=== PATIENT | male | born 1985 | race Caucasian/White ===

== ENCOUNTER 2023-10-16 20:39 | Emergency (ER) | payer OTHER, SELFPAY ==
[2023-10-16 21:58] LABS: Absolute Lymphocytes (CBC) 2.5 K/uL (0.7-4.9); Lymphocytes % 24.6 % (15.3-44.8); MCV 87.7 fL (80-100); MPV 7.2 fL (7.6-11.3); Platelets 353 thou/uL (152-406); RBC Red Blood Cell Count 4.22 M/uL (4.33-5.43)
[2023-10-16 22:05] LABS: Potassium 3.5 mEq/L (3.5-5.1); Troponin High Sensitivity 4.3 pg/mL (<58.9)
--- NOTE | 2023-10-16 22:28 | RAD REPORT ---
EXAM DESCRIPTION: RAD - Chest Single View - 10/16/2023 10:21 pm CLINICAL HISTORY: PALPITATIONS Chest pain. COMPARISON: <Comparisons> FINDINGS: Portable technique limits examination quality. The lungs are grossly clear. The heart is normal in size. No displaced fractures. IMPRESSION: No acute intrathoracic process suspected.
--- NOTE | 2023-10-16 22:44 | ER ---
Nurse's Notes [facility] Name: Todd Cast Age: 38 yrs Sex: Male : 1985 Arrival Date: 10/16/2023 Time: 20:39 Bed 17 Private MD: Diagnosis: Palpitations Presentation: 10/16 20:58 Chief complaint: Patient states: Palpitations onset last Wednesday. Pt denies any nausea, cm10 chest pain and shortness of breath. Coronavirus screen: Vaccine status: Patient reports receiving the 2nd dose of the covid vaccine. Client indicates they have traveled out of the [place] in the last 14 days. Ebola Screen: Patient denies travel to an Ebola-affected area in the 21 days before illness onset. No symptoms or risks identified at this time. Initial Sepsis Screen: Does the patient meet any 2 criteria? No. Patient's initial sepsis screen is negative. Does the patient have a suspected source of infection? No. Patient's initial sepsis screen is negative. Risk Assessment: Do you want to hurt yourself or someone else? Patient reports no desire to harm self or others. Onset of symptoms was October 16, 2023. 20:58 Method Of Arrival: Ambulatory cm10 20:58 Acuity: LORENA 3 cm10 Historical: - Allergies: 21:00 No Known Allergies; cm10 - PMHx: 21:00 GERD; hiatal hernia; cm10 - Immunization history:: Adult Immunizations unknown. - Social history:: Smoking status: Patient denies any tobacco usage or history of. Screenin:29 [facility] ED Fall Risk Assessment (Adult) History of falling in the last 3 months, nw1 including since admission No falls in past 3 months (0 pts) Confusion or Disorientation No (0 pts) Intoxicated or Sedated No (0 pts) Impaired Gait No (0 pts) Mobility Assist Device Used No (0 pt) Altered Elimination No (0 pt) Score/Fall Risk Level 0 - 2 = Low Risk Oriented to surroundings, Maintained a safe environment, Educated pt \T\ family on fall prevention, incl call for assistance when getting out of bed, Assessed \T\ reinforced patient's understanding of fall precautions, Provided non-skid footwear, Hourly rounding (assess needs \T\ fall precautionary measures) done. Abuse screen: Denies threats or abuse. Denies injuries from another. Nutritional screening: No deficits noted. Tuberculosis screening: No symptoms or risk factors identified. Assessment: 22:29 Reassessment: INTRODUCTIONS MADE. PT NOTED IN BED WITH S.O. VSS AT THIS TIME. PT STATES nw1 DECREASE IN HEART PALPITATIONS. PT STATES HE HAS BEEN HAVING PALPITATIONS SINCE WEDNESDAY WHEN COMING BACK FROM [place]. CALL LIGHT AT BEDSIDE. WILL CONTINUE TO MONITOR. General: Appears in no apparent distress. comfortable, Behavior is calm, cooperative, appropriate for age. Pain: DENIES Pain began DENIES. Neuro: Level of Consciousness is awake, alert, obeys commands, Oriented to person, place, time, situation, Appropriate for age. Cardiovascular: Reports palpitations, since 10/08/23. Heart tones present Capillary refill < 3 seconds Pulses are all present. Rhythm is regular. Respiratory: No deficits noted. Airway is patent Trachea midline Respiratory effort is even, unlabored, Respiratory pattern is regular, symmetrical. GI: No deficits noted. No signs and/or symptoms were reported involving the gastrointestinal system. Abdomen is flat, Bowel sounds present X 4 quads. Abd is soft and non tender. Derm: No signs and/or symptoms reported regarding the dermatologic system. Skin is intact, is healthy with good turgor, Skin is dry. Musculoskeletal: No deficits noted. No signs and/or symptoms reported regarding the musculoskeletal system. Vital Signs: 20:58 BP 146 / 102; Pulse 74; Resp 18; Temp 97.7; Pulse Ox 100% ; Pain 0/10; cm10 22:29 BP 133 / 79; Pulse 65; Resp 16; Pulse Ox 100% on R/A; nw1 23:08 BP 139 / 73; Pulse 61; Resp 15; Pulse Ox 100% ; nw1 20:58 Pain Scale: Adult cm10 Miller Coma Score: 22:29 Eye Response: spontaneous(4). Motor Response: obeys commands(6). Verbal Response: nw1 oriented(5). Total: 15. ED Course: 20:41 Patient arrived in ED. jj6 20:42 Ag Valenzuela DO is Attending Physician. ms3 21:00 Triage completed. cm10 21:01 Arm band placed on Patient placed in an exam room, on a stretcher. cm10 21:36 Basic Metabolic Panel Sent. cm10 21:36 CBC with Diff Sent. cm10 21:36 Troponin HS Sent. cm10 21:36 Initial lab(s) drawn, by me, sent to lab. Inserted saline lock: 20 gauge in right cm10 forearm, using aseptic technique. Blood collected. Patient maintains SpO2 saturation greater than 95% on room air. 22:20 Etta Adrian, RN is Primary Nurse. nw1 22:22 XRAY Chest (1 view) In Process Unspecified. EDMS 22:29 Patient has correct armband on for positive identification. Placed in gown. Bed in low nw1 position. Call light in reach. Side rails up X2. Adult w/ patient. Provided Education on: POC. Client placed on continuous cardiac and pulse oximetry monitoring. NIBP monitoring applied. night monitor on. Pulse ox on. NIBP on. Door closed. Noise minimized. Warm blanket given. 22:29 No provider procedures requiring assistance completed. Flushed right forearm saline nw1 lock. 22:43 Farshad Sargent MD is Referral Physician. ms3 22:43 Doron Nunez DO is Referral Physician. ms3 23:08 IV discontinued, intact, bleeding controlled, No redness/swelling at site. Pressure nw1 dressing applied. Administered Medications: No medications were administered Medication: 22:29 VIS not applicable for this client. nw1 Outcome: 22:43 Discharge ordered by . ms3 23:08 Discharged to home ambulatory, with significant other, nw1 23:08 Condition: stable 23:08 Discharge instructions given to patient, Instructed on discharge instructions, follow up and referral plans. hydration Demonstrated understanding of instructions, 23:09 Patient left the ED. nw1 Signatures: Dispatcher [employer] EDMS Ag Valenzuela DO DO ms3 Yuli Carr jj6 Bouchra Pedro, RN RN cm10 Etta Adrian, RN RN nw1
--- NOTE | 2023-10-16 22:44 | EDPHYS ---
Physician Documentation [facility] Name: Todd Cast Age: 38 yrs Sex: Male : 1985 Arrival Date: 10/16/2023 Time: 20:39 Bed 17 Private MD: ED Physician Ag Valenzuela HPI: 10/16 21:20 This 38 yrs old Male presents to ER via Ambulatory with complaints of Irregular Pulse. ms3 21:20 38-year-old male with past medical history of GERD, hiatal hernia [place] [facility] [place] for palpitations that began 1 week prior to arrival. Patient denies pain, shortness of breath, nausea, vomiting. Patient denies any alleviating or inciting factors. Patient notes he does drink 4 to 6 cups of coffee per day. Patient states he stopped vaping after experiencing palpitations. Patient does use nicotine pouches.. Historical: - Allergies: 21:00 No Known Allergies; cm10 - PMHx: 21:00 GERD; hiatal hernia; cm10 - Immunization history:: Adult Immunizations unknown. - Social history:: Smoking status: Patient denies any tobacco usage or history of. ROS: 21:20 Constitutional: Negative for fever, and chills. Neck: Negative for injury, pain, and ms3 swelling, 21:20 Respiratory: Negative for shortness of breath, cough, wheezing, and pleuritic chest pain, Abdomen/GI: Negative for abdominal pain, nausea, vomiting, diarrhea, and constipation, MS/Extremity: Negative for injury and deformity, 21:20 Cardiovascular: Positive for palpitations, 21:20 All other systems are negative, Exam: 21:20 Constitutional: This is a well developed, well nourished patient who is awake, alert, ms3 and in no acute distress. Head/Face: Normocephalic, atraumatic. Neck: Trachea midline, no cervical lymphadenopathy. Supple, full range of motion without nuchal rigidity, or vertebral point tenderness. No Meningismus. Chest/axilla: Normal chest wall appearance and motion. Nontender with no deformity. Cardiovascular: Regular rate and rhythm with a normal S1 and S2. No gallops, murmurs, or rubs. Normal PMI, no JVD. No pulse deficits. Respiratory: Lungs have equal breath sounds bilaterally, clear to auscultation and percussion. No rales, rhonchi or wheezes noted. No increased work of breathing, no retractions or nasal flaring. Abdomen/GI: Soft, non-tender, with normal bowel sounds. No distension or tympany. No guarding or rebound. No evidence of tenderness throughout. Skin: Warm, dry with normal turgor. Normal color with no rashes, no lesions, and no evidence of cellulitis. MS/ Extremity: Pulses equal, no cyanosis. Neurovascular intact. Full, normal range of motion. 21:20 ECG was reviewed by the Attending Physician. Vital Signs: 20:58 BP 146 / 102; Pulse 74; Resp 18; Temp 97.7; Pulse Ox 100% ; Pain 0/10; cm10 22:29 BP 133 / 79; Pulse 65; Resp 16; Pulse Ox 100% on R/A; nw1 23:08 BP 139 / 73; Pulse 61; Resp 15; Pulse Ox 100% ; nw1 20:58 Pain Scale: Adult cm10 Perry Coma Score: 22:29 Eye Response: spontaneous(4). Motor Response: obeys commands(6). Verbal Response: nw1 oriented(5). Total: 15. MDM: 21:03 Patient medically screened. ms3 23:20 Differential diagnosis: arrythmia, dehydration, stress disorder. Data reviewed: vital ms3 signs, nurses notes, lab test result(s), EKG, radiologic studies, and as a result, I will discharge patient. Independent interpretation of the following test(s) in the Emergency Department EKG: See my EKG interpretation above. Independent interpretation of the following test(s) in the Emergency Department X-Ray: My interpretation is Chest x-ray image reviewed by me does not reveal enlarged heart or pulmonary edema. Care significantly affected by the following Social Determinants of Health: Poor access to healthcare and/or lack of insurance. Counseling: I had a detailed discussion with the patient and/or guardian regarding the historical points, exam findings, and any diagnostic results supporting the discharge/admit diagnosis, lab results, radiology results, the need for outpatient follow up, to return to the emergency department if symptoms worsen or persist or if there are any questions or concerns that arise at home. Special discussion: Based on the patient's history, exam, and Dx evaluation, there is no indication for emergent intervention or inpatient Tx. It is understood by the patient/guardian that if the Sx's persist or worsen they need to return immediately for re-evaluation. ED course: Discussed labs, chest x-ray, EKG with patient and his . Patient to follow-up with Dr. Merino and primary care in 2 to 3 days. Patient understands and agrees with plan. All questions were answered. On reevaluation patient states his symptoms have improved, patient is alert and oriented x4, no apparent distress, nontoxic-appearing, speaking full sentences.. 10/16 21:04 Order name: Basic Metabolic Panel; Complete Time: 22:14 ms3 10/16 21:04 Order name: CBC with Diff; Complete Time: 22:14 ms3 10/16 21:04 Order name: Troponin HS; Complete Time: 22:14 ms3 10/16 21:04 Order name: XRAY Chest (1 view); Complete Time: 22:29 ms3 10/16 21:04 Order name: EKG; Complete Time: 21:05 ms3 10/16 21:04 Order name: Cardiac monitoring; Complete Time: 21:36 ms3 10/16 21:04 Order name: EKG - Nurse/Tech; Complete Time: 21:10 ms3 10/16 21:04 Order name: IV Saline Lock; Complete Time: 21:36 ms3 10/16 21:04 Order name: Labs collected and sent; Complete Time: 21:36 ms3 10/16 21:04 Order name: O2 Per Protocol; Complete Time: 21:36 ms3 02 21:04 Order name: O2 Sat Monitoring; Complete Time: 21:36 ms3 EC:20 Rate is 72 beats/min. Rhythm is regular. QRS [place] is Normal. [place] interval is normal. QRS ms3 interval is normal. Clinical impression: Normal ECG. Interpreted by me. Reviewed by me. Administered Medications: No medications were administered Disposition Summary: 10/16/23 22:43 Discharge Ordered Notes: Location: Home ms3 Condition: Stable ms3 Diagnosis - Palpitations ms3 Followup: ms3 - With: Farshad Sargent MD - When: 2 - 3 days - Reason: Recheck today's complaints Followup: ms3 - With: Doron Nunez DO - When: 2 - 3 days - Reason: Recheck today's complaints Discharge Instructions: - Discharge Summary Sheet ms3 - Palpitations ms3 Forms: - Medication Reconciliation Form ms3 - Thank You Letter ms3 - Antibiotic Education ms3 - Prescription Opioid Use ms3 - Patient Portal Instructions ms3 - Leadership Thank You Letter ms3 Signatures: Dispatcher [employer] Ag Mccrary DO DO ms3 Bouchra Pedro, RN RN cm10
[2023-10-16 23:23] VITALS: TEMP 97.7; O2SAT 100
[2023-10-16 23:27] VITALS: BP 139/73
--- NOTE | 2023-10-19 13:37 | EKG ---
Test Date: 2023-10-16 Test Time: 21:07:30 Show Operations Supervisor: TONY MEASUREMENT RESULTS: Intervals: Rate: 72 CA: 136 QRSD: 98 QT: 386 QTc: 422 [place]: P: 61 CA: 136 QRS: 62 T: 73 INTERPRETIVE STATEMENTS: Normal sinus rhythm Normal ECG No previous ECG available for comparison Electronically Signed On 10-19-23 13:29:34 [employer] by Farshad Sargent
== END 2023-10-16 23:09 | disposition home or self-care (01) ==
LOC: ER 20:39
DX: R00.2 Palpitations (principal)
CPT/HCPCS: 36415; 71045; 80048; 84484; 85025; 93005; 99285

== ENCOUNTER 2025-01-17 10:18 | Emergency (ER) | payer SELFPAY ==
[2025-01-17 11:32] LABS: Absolute Lymphocytes (CBC) 1.8 K/uL (0.7-4.9); Absolute Monocytes 0.8 K/uL (0.1-1.3); Absolute Neutrophil 6.5 K/uL (1.8-8.0); Basophils % 0.4 % (0-1.3); Eosinophils % 0.1 % (0-4.4); Hematocrit 35.1 % (39.6-49.0); Lymphocytes % 19.7 % (15.3-44.8); MCHC 37.1 g/dL (32.0-36.0); MCV 86.4 fL (80-100); Monocytes % 8.6 % (3.3-12.3); Neutrophils % 71.2 % (41.7-73.7); Nucleated Red Blood Cells % 0.1 % (0-0); Platelets 358 thou/uL (152-406); RBC Red Blood Cell Count 4.06 M/uL (4.33-5.43); Red Cell Distribution Width 12.9 % (12.1-15.2)
[2025-01-17 11:47] LABS: Albumin 4.4 g/dL (3.4-5.0); Albumin/Globulin Ratio 1.3 (1.1-1.8); Anion Gap 11.2 mEq/L (5.0-15.0); Bilirubin Total 3.2 mg/dL (0.2-1.0); Globulin 3.5 g/dL (2.3-3.5); Potassium 3.2 mEq/L (3.5-5.1); Protein, Total 7.9 g/dL (6.4-8.2)
[2025-01-17] MEDS ORDERED: ONDANSETRON 4 MG/2 ML VIAL ONE (13:43)
[2025-01-17] MEDS ORDERED: NA CHLORIDE 0.9% 1,000 ML ONE (13:43)
[2025-01-17] MEDS ORDERED: PANTOPRAZOLE 40 MG INJ ONE (13:43)
[2025-01-17] MEDS ORDERED: DICYCLOMINE HCL 20 MG/2 ML AMP IM ONE (13:43)
--- NOTE | 2025-01-17 15:27 | ER ---
Nurse's Notes [facility] Name: Todd Cast Age: 39 yrs Sex: Male : 1985 Arrival Date: 01/17/2025 Time: 10:18 Bed 12 Private MD: Diagnosis: Nausea with vomiting, unspecified Presentation: 01/17 10:37 Chief complaint: Patient states: Vomiting and epigastric pain that he describes as cm10 burning onset . Pt states that he has lost 20 pounds since . Pt states having similar issues in the past. Pt states that he was seen at [facility] last week. Coronavirus screen: Client denies travel out of the [place] in the last 14 days. Ebola Screen: Patient denies travel to an Ebola-affected area in the 21 days before illness onset. Initial Sepsis Screen: Does the patient meet any 2 criteria? No. Patient's initial sepsis screen is negative. Does the patient have a suspected source of infection? No. Patient's initial sepsis screen is negative. Risk Assessment: Do you want to hurt yourself or someone else? Patient reports no desire to harm self or others. Onset of symptoms was January 11, 2025. 10:37 Method Of Arrival: Ambulatory cm10 10:37 Acuity: LORENA 3 cm10 Triage Assessment: 10:40 General: Appears in no apparent distress. uncomfortable, Behavior is calm, cooperative. cm10 Pain: Complains of pain in epigastric area Pain does not radiate. Pain currently is 7 out of 10 on a pain scale. Quality of pain is described as burning, Pain began . Neuro: No deficits noted. Level of Consciousness is awake, alert, obeys commands, Oriented to person, place, time, situation, Appropriate for age. Respiratory: No deficits noted. Airway is patent Respiratory effort is even, unlabored, Respiratory pattern is regular, symmetrical. GI: Reports upper abdominal pain, intolerance of fluids, intolerance of food, nausea, vomiting. Historical: - Allergies: 10:39 No Known Allergies; cm10 - PMHx: 10:39 GERD; hiatal hernia; cm10 - Immunization history:: Adult Immunizations up to date. - Infectious Disease History:: Denies. - Social history:: Smoking status: Patient/guardian denies using tobacco. - Family history:: not pertinent. Screenin:41 [facility] ED Fall Risk Assessment (Adult) History of falling in the last 3 months, jb4 including since admission No falls in past 3 months (0 pts) Confusion or Disorientation No (0 pts) Intoxicated or Sedated No (0 pts) Impaired Gait No (0 pts) Mobility Assist Device Used No (0 pt) Altered Elimination No (0 pt) Score/Fall Risk Level 0 - 2 = Low Risk Oriented to surroundings, Maintained a safe environment. Abuse screen: Denies threats or abuse. Nutritional screening: No deficits noted. Tuberculosis screening: No symptoms or risk factors identified. Assessment: 13:30 General: Appears in no apparent distress. comfortable, Behavior is calm, cooperative, jb4 appropriate for age. Pain: Complains of pain in abdomen Pain does not radiate. Pain currently is 7 out of 10 on a pain scale. Neuro: Level of Consciousness is awake, alert, obeys commands, Oriented to person, place, time, situation. Cardiovascular: Patient's skin is warm and dry. Respiratory: Airway is patent Respiratory effort is even, unlabored, Respiratory pattern is regular, symmetrical. GI: Abdomen is flat, non-distended, Reports lower abdominal pain, diarrhea, nausea, vomiting. Derm: Skin is intact, Skin is pink, warm \T\ dry. Musculoskeletal: Circulation, motion, and sensation intact. Range of motion: intact in all extremities. 14:30 Reassessment: Patient appears in no apparent distress at this time. Patient and/or jb4 family updated on plan of care and expected duration. Pain level reassessed. Patient is alert, oriented x 3, equal unlabored respirations, skin warm/dry/pink. 15:41 Reassessment: Patient appears in no apparent distress at this time. Patient and/or jb4 family updated on plan of care and expected duration. Pain level reassessed. Patient is alert, oriented x 3, equal unlabored respirations, skin warm/dry/pink. Patient states feeling better. Vital Signs: 10:37 BP 137 / 92; Pulse 79; Resp 15; Temp 98.4(O); Pulse Ox 100% on R/A; Weight 72.57 kg; cm10 Height 5 ft. 11 in. ; Pain 7/10; 14:08 BP 116 / 79; Pulse 59; Resp 16; Pulse Ox 99% on R/A; jb4 10:37 Body Mass Index 22.32 (72.57 kg, 180.34 cm) cm10 10:37 Pain Scale: Adult cm10 ED Course: 10:20 Patient arrived in ED. mr 10:34 Emmett Harding MD is Attending Physician. rt 10:39 Triage completed. cm10 10:40 Arm band placed on right wrist. Patient placed in waiting room. cm10 11:00 CBC with Diff Sent. bc6 11:00 CMP Sent. bc6 11:00 Lipase Sent. bc6 11:00 Initial lab(s) drawn, by me, sent to lab. Inserted saline lock: 20 gauge in right bc6 antecubital area, using aseptic technique. Blood collected. Flushed with 10 mL NS. 13:02 Patient placed in an exam room, on a stretcher. ll1 13:40 Matthew Kang, SELIN is Primary Nurse. jb4 15:27 Larry Reagan MD is Referral Physician. rt 15:41 Patient has correct armband on for positive identification. Bed in low position. Call jb4 light in reach. Side rails up X 1. Provided Education on: discharge instructions. 15:41 No provider procedures requiring assistance completed. IV discontinued, intact, jb4 bleeding controlled, No redness/swelling at site. Pressure dressing applied. Administered Medications: 13:55 Drug: Pantoprazole IVP 40 mg IVP once Route: IVP; Site: right antecubital; jb4 15:00 Follow up: Response: No adverse reaction; Marked relief of symptoms jb4 13:56 Drug: Ondansetron IVP 4 mg IVP once; over 2 minutes Route: IVP; Site: right antecubital;jb4 15:00 Follow up: Response: No adverse reaction; Marked relief of symptoms jb4 13:56 Drug: NS 0.9% IV 1000 ml IV at 1 bolus Per protocol; to be given as a bolus over 60 jb4 minutes Route: IV; Rate: 1 bolus; Site: right antecubital; 15:15 Follow up: Response: No adverse reaction; Marked relief of symptoms; IV Status: jb4 Completed infusion; IV Intake: 1000ml 13:56 Drug: Dicyclomine IM 20 mg IM once Route: IM; Site: right gluteus; jb4 15:00 Follow up: Response: No adverse reaction; Marked relief of symptoms jb4 Medication: 15:41 VIS not applicable for this client. jb4 Intake: 15:15 IV: 1000ml; Total: 1000ml. jb4 Outcome: 15:27 Discharge ordered by . rt 15:41 Discharged to home ambulatory, with family, jb4 15:41 Condition: stable 15:41 Discharge instructions given to patient, Instructed on discharge instructions, follow up and referral plans. medication usage, Demonstrated understanding of instructions, follow-up care, medications, Prescriptions given X 4, 15:43 Patient left the ED. jb4 Signatures: Mica Fernandez, Reg Reg mr Kang Matthew, RN RN jb4 Chapito Medrano RN RN ll1 Emmett Harding MD MD rt Valerie Lopez6 Bouchra Pedro, RN RN cm10
--- NOTE | 2025-01-17 15:28 | EDPHYS ---
Physician Documentation [facility] Name: Todd Cast Age: 39 yrs Sex: Male : 1985 Arrival Date: 01/17/2025 Time: 10:18 Bed 12 Private MD: ED Physician Emmett Harding HPI: 01/17 16:44 This 39 yrs old Male presents to ER via Ambulatory with complaints of Vomiting, Weight rt loss. 16:44 Patient presents to the ED with nausea, vomiting for about a week. Reports significant rt weight loss during that time. Patient reports that he has had these episodes off and on for many years now. Was seen at [facility], negative ultrasound, CT scan. Denies other acute complaints at this time, symptoms are moderate in severity, no other aggravating or alleviating factors.. Historical: - Allergies: 10:39 No Known Allergies; cm10 - PMHx: 10:39 GERD; hiatal hernia; cm10 - Immunization history:: Adult Immunizations up to date. - Infectious Disease History:: Denies. - Social history:: Smoking status: Patient/guardian denies using tobacco. - Family history:: not pertinent. ROS: 16:44 Cardiovascular: Negative for chest pain, palpitations, and edema, Respiratory: Negative rt for shortness of breath, cough, wheezing, and pleuritic chest pain, MS/Extremity: Negative for injury and deformity, Skin: Negative for injury, rash, and discoloration, 16:44 Constitutional: Positive for weight loss, Negative for fever, 16:44 Abdomen/GI: Positive for nausea and vomiting, Negative for abdominal pain, Exam: 16:44 Constitutional: This is a well developed, well nourished patient who is awake, alert, rt and in no acute distress. Head/Face: Normocephalic, atraumatic. Chest/axilla: Normal chest wall appearance and motion. Nontender with no deformity. No lesions are appreciated. Cardiovascular: Regular rate and rhythm with a normal S1 and S2. No gallops, murmurs, or rubs. Normal PMI, no JVD. No pulse deficits. Respiratory: Lungs have equal breath sounds bilaterally, clear to auscultation and percussion. No rales, rhonchi or wheezes noted. No increased work of breathing, no retractions or nasal flaring. Abdomen/GI: Soft, non-tender, with normal bowel sounds. No distension or tympany. No guarding or rebound. No evidence of tenderness throughout. Skin: Warm, dry with normal turgor. Normal color with no rashes, no lesions, and no evidence of cellulitis. MS/ Extremity: Pulses equal, no cyanosis. Neurovascular intact. Full, normal range of motion. Neuro: Awake and alert, GCS 15, oriented to person, place, time, and situation. Cranial nerves II-XII grossly intact. Motor strength 5/5 in all extremities. Sensory grossly intact. Cerebellar exam normal. Normal gait. Vital Signs: 10:37 BP 137 / 92; Pulse 79; Resp 15; Temp 98.4(O); Pulse Ox 100% on R/A; Weight 72.57 kg; cm10 Height 5 ft. 11 in. ; Pain 7/10; 14:08 BP 116 / 79; Pulse 59; Resp 16; Pulse Ox 99% on R/A; jb4 10:37 Body Mass Index 22.32 (72.57 kg, 180.34 cm) cm10 10:37 Pain Scale: Adult cm10 MDM: 10:48 Medical Screening Exam initiated rt 16:44 Differential diagnosis: Nausea, vomiting, gastritis, cannabinol hyperemesis syndrome. rt Data reviewed: vital signs, nurses notes, lab test result(s). I considered the following discharge prescriptions or medication management in the emergency department Medications were administered in the Emergency Department. See MAR. Test considered but Not performed: Other Details Patient had a recent ultrasound, CT scan that were both negative, reviewed the results from [facility] that they brought. Do not believe that repeat imaging is indicated at this time.. Care significantly affected by the following chronic conditions: Hiatal hernia. Counseling: I had a detailed discussion with the patient and/or guardian regarding the historical points, exam findings, and any diagnostic results supporting the discharge/admit diagnosis, lab results, the need for outpatient follow up, to return to the emergency department if symptoms worsen or persist or if there are any questions or concerns that arise at home. Response to treatment: the patient's symptoms have mildly improved after treatment. 01/17 10:50 Order name: CBC with Diff; Complete Time: 12:37 rt 01/17 10:50 Order name: CMP; Complete Time: 12:37 rt 01/17 10:50 Order name: Lipase; Complete Time: 12:37 rt 01/17 10:50 Order name: IV Saline Lock; Complete Time: 11:00 rt 01/17 10:50 Order name: Labs collected and sent; Complete Time: 11:00 rt 01/17 11:11 Order name: Labs - recollect needed: recollect lavender and green top; Complete Time: bd 11:30 Administered Medications: 13:55 Drug: Pantoprazole IVP 40 mg IVP once Route: IVP; Site: right antecubital; jb4 15:00 Follow up: Response: No adverse reaction; Marked relief of symptoms jb4 13:56 Drug: Ondansetron IVP 4 mg IVP once; over 2 minutes Route: IVP; Site: right antecubital;jb4 15:00 Follow up: Response: No adverse reaction; Marked relief of symptoms jb4 13:56 Drug: NS 0.9% IV 1000 ml IV at 1 bolus Per protocol; to be given as a bolus over 60 jb4 minutes Route: IV; Rate: 1 bolus; Site: right antecubital; 15:15 Follow up: Response: No adverse reaction; Marked relief of symptoms; IV Status: jb4 Completed infusion; IV Intake: 1000ml 13:56 Drug: Dicyclomine IM 20 mg IM once Route: IM; Site: right gluteus; jb4 15:00 Follow up: Response: No adverse reaction; Marked relief of symptoms jb4 Disposition Summary: 01/17/25 15:27 Discharge Ordered Notes: Location: Home rt Problem: an ongoing problem rt Symptoms: are unchanged rt Condition: Stable rt Diagnosis - Nausea with vomiting, unspecified rt Followup: rt - With: Larry Reagan MD - When: 2 - 3 days - Reason: Discharge Instructions: - Discharge Summary Sheet rt - Nausea and Vomiting, Adult rt - Cannabinoid Hyperemesis Syndrome rt Forms: - Medication Reconciliation Form rt - Antibiotic Education rt - Prescription Opioid Use rt - Patient Portal Instructions rt - Leadership Thank You Letter rt Prescriptions: - ondansetron 8 mg Oral Tablet,disintegrating - take 1 tablet ORAL route every 6 hours as needed for nausea; 18 tablet; rt Refills: 0, Product Selection Permitted - promethazine 25 mg Rectal suppository - insert 1 suppository RECTAL route every 6 hours as needed for nausea; 15 rt suppository; Refills: 0, Product Selection Permitted - Protonix 40 mg Oral Tablet - take 1 tablet ORAL route once daily; 30 tablet; Refills: 0, Product Selection rt Permitted - dicyclomine 20 mg Oral tablet - take 1 tablet ORAL route 3 times per day as needed; 18 tablet; Refills: 0, rt Product Selection Permitted Signatures: Dispatcher [employer] EDMS Doreen Bullock James, RN RN jb4 Emmett Harding MD MD rt Bouchra Pedro RN RN cm10 Corrections: (The following items were deleted from the chart) 11:23 10:50 Abdomen Pelvis W [id number] ordered. EDMS EDMS
[2025-01-17 16:01] VITALS: TEMP 98.4
[2025-01-17 16:07] VITALS: BP 116/79; O2SAT 99
== END 2025-01-17 15:43 | disposition home or self-care (01) ==
LOC: ER 10:18
DX: R11.2 Nausea with vomiting, unspecified (principal)
CPT/HCPCS: 36415; 80053; 83690; 85025; J0500; J2405; J2470; J7030

== ENCOUNTER 2025-01-21 08:43 | Inpatient (IN) | payer SELFPAY ==
[2025-01-21] MEDS ORDERED: ONDANSETRON 4 MG/2 ML VIAL ONE (09:10)
[2025-01-21] MEDS ORDERED: NA CHLORIDE 0.9% 1,000 ML ONE ×2 (09:10→10:07)
[2025-01-21] MEDS ORDERED: FAMOTIDINE 20 MG/2 ML VIAL IV ONE (09:10)
[2025-01-21 09:28] LABS: Absolute Lymphocytes (CBC) 1.7 K/uL (0.7-4.9); Absolute Monocytes 1.2 K/uL (0.1-1.3); Absolute Neutrophil 5.4 K/uL (1.8-8.0); Basophils % 0.4 % (0-1.3); Eosinophils % 0.5 % (0-4.4); Hematocrit 35.1 % (39.6-49.0); Hemoglobin 12.9 g/dL (13.6-17.9); Lymphocytes % 20.9 % (15.3-44.8); MCHC 36.9 g/dL (32.0-36.0); MCV 86.7 fL (80-100); MPV 7.6 fL (7.6-11.3); Monocytes % 13.8 % (3.3-12.3); Neutrophils % 64.4 % (41.7-73.7); Nucleated Red Blood Cells % 0.2 % (0-0); Platelets 376 thou/uL (152-406); RBC Red Blood Cell Count 4.05 M/uL (4.33-5.43); Red Cell Distribution Width 12.7 % (12.1-15.2)
[2025-01-21 09:54] LABS: Albumin 4.5 g/dL (3.4-5.0); Albumin/Globulin Ratio 1.4 (1.1-1.8); Anion Gap 12.8 mEq/L (5.0-15.0); Bilirubin Total 2.8 mg/dL (0.2-1.0); Globulin 3.3 g/dL (2.3-3.5); Potassium 2.8 mEq/L (3.5-5.1); Protein, Total 7.8 g/dL (6.4-8.2)
[2025-01-21] MEDS ORDERED: LORazepam 2 MG/ML VIAL ONE (10:07)
[2025-01-21] MEDS ORDERED: NS KCL 20MEQ 1,000 ML IV ONE (10:08)
[2025-01-21] MEDS ORDERED: KCL 20 MEQ/100 mL IVPB 200 ML IV ONE (10:08)
--- NOTE | 2025-01-21 10:58 | ER ---
Nurse's Notes [facility] Name: Todd Cast Age: 39 yrs Sex: Male : 1985 Arrival Date: 01/21/2025 Time: 08:43 Bed 6 Private MD: Diagnosis: Nausea with vomiting, unspecified;Cannabis dependence with other cannabis-induced disorder;Hypokalemia;Dehydration;Anorexia Presentation: 01/21 09:03 Chief complaint: N/V and upper abdominal pain x 10 days. Not tolerating fluids. hb Coronavirus screen: At this time, the client does not indicate any symptoms associated with coronavirus-19. Ebola Screen: No symptoms or risks identified at this time. Initial Sepsis Screen: Does the patient meet any 2 criteria? No. Patient's initial sepsis screen is negative. Does the patient have a suspected source of infection? No. Patient's initial sepsis screen is negative. Risk Assessment: Do you want to hurt yourself or someone else? Patient reports no desire to harm self or others. Onset of symptoms was January 11, 2025. 09:03 Method Of Arrival: Ambulatory 09:03 Acuity: LORENA 3 hb Historical: - Allergies: 09:04 No Known Allergies; hb - PMHx: 09:04 GERD; hiatal hernia; hb - Immunization history:: Adult Immunizations up to date. - Infectious Disease History:: Denies. - Social history:: Smoking status: unknown Patient uses street drugs, marijuana. Screenin:13 [facility] ED Fall Risk Assessment (Adult) History of falling in the last 3 months, jl7 including since admission No falls in past 3 months (0 pts) Confusion or Disorientation No (0 pts) Intoxicated or Sedated No (0 pts) Impaired Gait No (0 pts) Mobility Assist Device Used No (0 pt) Altered Elimination No (0 pt) Score/Fall Risk Level 0 - 2 = Low Risk Oriented to surroundings, Maintained a safe environment. Abuse screen: Denies threats or abuse. Denies injuries from another. Nutritional screening: No deficits noted. Tuberculosis screening: No symptoms or risk factors identified. Assessment: 09:33 General: Appears in no apparent distress. Behavior is calm, cooperative, appropriate ap3 for age. Pain: Complains of pain in abdomen. Neuro: Level of Consciousness is awake, alert, obeys commands, Oriented to person, place, time, situation, Appropriate for age. Cardiovascular: Patient's skin is warm and dry. Respiratory: Airway is patent Respiratory effort is even, unlabored, Respiratory pattern is regular, symmetrical. GI: Abdomen is flat, non-distended, Reports intolerance of food, nausea, vomiting. 09:33 Reassessment: patient would like to speak with ER doctor prior to medication ap3 administration. 12:31 Reassessment: Patient and/or family updated on plan of care and expected duration. Pain ap3 level reassessed. Patient is alert, oriented x 3, equal unlabored respirations, skin warm/dry/pink. 14:00 Reassessment: Awaiting admission orders. jl7 Vital Signs: 09:03 BP 140 / 91; Pulse 67; Resp 16; Temp 98.2(O); Pulse Ox 99% on R/A; Weight 70.31 kg; hb Height 5 ft. 11 in. ; Pain 5/10; 10:12 BP 134 / 90; Pulse 64; Resp 15; Pulse Ox 100% ; jl7 12:31 BP 150 / 89; Pulse 68; Pulse Ox 100% on R/A; ap3 20:07 BP 133 / 86; Pulse 63; Resp 18; Pulse Ox 100% ; cp4 09:03 Body Mass Index 21.62 (70.31 kg, 180.34 cm) hb 09:03 Pain Scale: Adult hb ED Course: 08:48 Patient arrived in ED. al6 08:54 Oneal Villalba MD is Attending Physician. vidal 08:58 Maggie Tracy, RN is Primary Nurse. ap3 09:04 Triage completed. hb 09:05 Arm band placed on. hb 09:08 Initial lab(s) drawn, by me, sent to lab. Inserted saline lock: 20 gauge in right ap3 antecubital area, using aseptic technique. Blood collected. Flushed with 10 mL NS. 09:37 EKG done, by ED staff, reviewed by Oneal Villalba MD. em1 10:13 Patient has correct armband on for positive identification. Bed in low position. Call jl7 light in reach. Side rails up X 1. Provided Education on: use of call forman. Client placed on continuous cardiac and pulse oximetry monitoring. NIBP monitoring applied. fisher trap on. 10:15 Inserted saline lock: 22 gauge in right antecubital area, using aseptic technique. em1 Flushed with 10 mL NS. 10:55 Saman Gonzalez MD is Hospitalizing Provider. vidal 12:32 No provider procedures requiring assistance completed. ap3 16:18 Patient admitted, IV remains in place. ap3 Administered Medications: 09:14 Drug: NS 0.9% IV 1000 ml IV at 1 bolus Per protocol; to be given as a bolus over 60 ap3 minutes Route: IV; Rate: 1 bolus; Site: right antecubital; 12:09 Follow up: IV Status: Completed infusion; IV Intake: 1000ml ap3 10:25 Drug: Ativan IVP 1 mg IVP once Route: IVP; Site: right antecubital; ap3 12:09 Follow up: Response: No adverse reaction ap3 10:25 Drug: NS 0.9% IV 1000 ml IV at 1000 ml once; to be given as a bolus over 60 minutes ap3 Route: IV; Rate: 1000 ml; Site: right antecubital; 11:30 Follow up: Response: No adverse reaction; IV Status: Completed infusion; IV Intake: jl7 1000ml 10:25 Drug: Potassium Chloride IV 20 mEq IV at per protocol once; administer over 1-2 hours ap3 Route: IV; Rate: per protocol; Site: right antecubital; 12:09 Follow up: IV Status: Completed infusion; IV Intake: 100ml ap3 10:25 Drug: NS 0.9% with KCl IV 20 mEq/L 1000 ml IV at 125 ml/hr continuous Route: IV; Rate: ap3 125 ml/hr; Site: right forearm; 14:00 Follow up: IV Status: Infusion continued upon admission jl7 10:26 Drug: Famotidine IVP 20 mg IVP once; dilute with 10 mL 0.9% NaCl; give over 2 minutes ap3 Route: IVP; Site: right antecubital; 12:09 Follow up: Response: No adverse reaction ap3 10:26 Drug: Ondansetron IVP 4 mg IVP once; over 2 minutes Route: IVP; Site: right antecubital;ap3 12:09 Follow up: Response: No adverse reaction ap3 12:08 Drug: Potassium Chloride IV 20 mEq IV at per protocol once; administer over 1-2 hours ap3 Route: IV; Rate: per protocol; Site: right antecubital; 14:08 Follow up: Response: No adverse reaction; IV Status: Completed infusion jl7 Medication: 12:32 VIS not applicable for this client. ap3 Intake: 11:30 IV: 1000ml; Total: 1000ml. jl7 12:09 IV: 1000ml; Total: 2000ml. ap3 12:09 IV: 100ml; Total: 2100ml. ap3 Outcome: 10:57 Decision to Hospitalize by Provider. vidal 16:18 Admitted to ER Hold. Please see [facility] for further documentation. ap3 16:18 Condition: good 16:18 Discharge instructions given to patient, family, Instructed on the need for admit, Demonstrated understanding of instructions, 20:32 Patient left the ED. br2 Signatures: Oneal Villalba MD MD cha Martinez, Eric em1 Christina Hazel, RN RN Jessa Chavez RN RN jl7 Maggie Tracy RN RN ap3 Janie Weber cp4 Linda Angeles RN RN br2 Luzma Conley al6 Corrections: (The following items were deleted from the chart) 17:18 09:03 Chief complaint: N/V and upper abdominal pain x 10 days. Not tolerating fluidsl hbhb
--- NOTE | 2025-01-21 10:58 | EDPHYS ---
Physician Documentation [facility] Name: Todd Cast Age: 39 yrs Sex: Male : 1985 Arrival Date: 01/21/2025 Time: 08:43 Bed 6 Private MD: BASSAM Physician Oneal Villalba HPI: 01/21 09:51 This 39 yrs old Male presents to ER via Ambulatory with complaints of vidal Nausea/Vomiting, Anxiety, Abdominal Pain. 09:51 The patient presents to the emergency department with nausea, vomiting, that is vidal continuous, abdominal pain, of the right upper quadrant and left upper quadrant. Onset: The symptoms/episode began/occurred 3 day(s) ago. Possible causes: unknown, hx chs. The symptoms are aggravated by food , The symptoms are alleviated by nothing. Associated signs and symptoms: The patient has no apparent associated signs or symptoms. Severity of symptoms: At their worst the symptoms were moderate in the emergency department the symptoms are unchanged. The patient has not experienced similar symptoms in the past. Historical: - Allergies: 09:04 No Known Allergies; hb - PMHx: 09:04 GERD; hiatal hernia; hb - Immunization history:: Adult Immunizations up to date. - Infectious Disease History:: Denies. - Social history:: Smoking status: unknown Patient uses street drugs, marijuana. ROS: 09:53 Constitutional: Negative for fever, chills, and weight loss, Eyes: Negative for injury, vidal pain, redness, and discharge, ENT: Negative for injury, pain, and discharge, Neck: Negative for injury, pain, and swelling, Cardiovascular: Negative for chest pain, palpitations, and edema, Respiratory: Negative for shortness of breath, cough, wheezing, and pleuritic chest pain, Back: Negative for injury and pain, : Negative for injury, bleeding, discharge, and swelling, MS/Extremity: Negative for injury and deformity, Skin: Negative for injury, rash, and discoloration, Neuro: Negative for headache, weakness, numbness, tingling, and seizure, Psych: Negative for depression, anxiety, suicide ideation, homicidal ideation, and hallucinations, Allergy/Immunology: Negative for hives, rash, and allergies, Endocrine: Negative for neck swelling, polydipsia, polyuria, polyphagia, and marked weight changes, Hematologic/Lymphatic: Negative for swollen nodes, abnormal bleeding, and unusual bruising, 09:53 Abdomen/GI: Positive for abdominal pain, nausea and vomiting, of the epigastric area, right upper quadrant and left upper quadrant, Exam: 09:53 Constitutional: This is a well developed, well nourished patient who is awake, alert, vidal and in no acute distress. Head/Face: Normocephalic, atraumatic. Eyes: Pupils equal round and reactive to light, extra-ocular motions intact. Lids and lashes normal. Conjunctiva and sclera are non-icteric and not injected. Cornea within normal limits. Periorbital areas with no swelling, redness, or edema. ENT: Nares patent. No nasal discharge, no septal abnormalities noted. Tympanic membranes are normal and external auditory canals are clear. Oropharynx with no redness, swelling, or masses, exudates, or evidence of obstruction, uvula midline. Mucous membranes moist. Neck: Trachea midline, no thyromegaly or masses palpated, and no cervical lymphadenopathy. Supple, full range of motion without nuchal rigidity, or vertebral point tenderness. No Meningismus. Chest/axilla: Normal chest wall appearance and motion. Nontender with no deformity. No lesions are appreciated. Cardiovascular: Regular rate and rhythm with a normal S1 and S2. No gallops, murmurs, or rubs. Normal PMI, no JVD. No pulse deficits. Abdomen/GI: Soft, non-tender, with normal bowel sounds. No distension or tympany. No guarding or rebound. No evidence of tenderness throughout. Back: No spinal tenderness. No costovertebral tenderness. Full range of motion. Male : Normal genitalia with no discharge or lesions. Skin: Warm, dry with normal turgor. Normal color with no rashes, no lesions, and no evidence of cellulitis. MS/ Extremity: Pulses equal, no cyanosis. Neurovascular intact. Full, normal range of motion., bilateral aka Neuro: Awake and alert, GCS 15, oriented to person, place, time, and situation. Cranial nerves II-XII grossly intact. Motor strength 5/5 in all extremities. Sensory grossly intact. Cerebellar exam normal. Normal gait. Psych: Awake, alert, with orientation to person, place and time. Behavior, mood, and affect are within normal limits. 09:53 ECG was reviewed by the Attending Physician. 09:53 Abdomen/GI: Inspection: abdomen appears normal, Bowel sounds: normal, Palpation: nontender, in all quadrants, Rectal exam: the exam is deferred, na, Liver: no appreciated palpable abnormalities, Hernia: not appreciated, Vital Signs: 09:03 BP 140 / 91; Pulse 67; Resp 16; Temp 98.2(O); Pulse Ox 99% on R/A; Weight 70.31 kg; hb Height 5 ft. 11 in. ; Pain 5/10; 10:12 BP 134 / 90; Pulse 64; Resp 15; Pulse Ox 100% ; jl7 12:31 BP 150 / 89; Pulse 68; Pulse Ox 100% on R/A; ap3 20:07 BP 133 / 86; Pulse 63; Resp 18; Pulse Ox 100% ; cp4 09:03 Body Mass Index 21.62 (70.31 kg, 180.34 cm) hb 09:03 Pain Scale: Adult hb MDM: 08:54 Medical Screening Exam initiated vidal 09:55 Differential diagnosis: Nonspecific abd pain, gastritis, cholecystitis, pancreatitis, vidal appendicitis, diverticulitis, viral gastroenteritis, gastroenteritis. Data reviewed: vital signs, nurses notes, lab test result(s), EKG, radiologic studies. Consideration of Admission/Observation Escalation of care including admission/observation considered. Independent interpretation of the following test(s) in the Emergency Department EKG: See my EKG interpretation above. Test considered but Not performed: MRI: no mrcp. Historians other than the Patient: Spouse/Significant Other: significant other. Care significantly affected by the following chronic conditions: gerd, hiatal hernia. 01/21 08:55 Order name: CBC with Diff; Complete Time: 09:36 [facility] 01/21 08:55 Order name: CMP; Complete Time: 10:01 [facility] 01/21 08:55 Order name: Lipase; Complete Time: 10:01 [facility] 01/21 08:55 Order name: Urinalysis w/ reflexes [facility] 01/21 10:04 Order name: Phosphorus [facility] 01/21 14:33 Order name: Comprehensive Metabolic Panel [facility] 01/21 14:33 Order name: Comprehensive Metabolic Panel [facility] 01/21 14:33 Order name: Comprehensive Metabolic Panel [facility] 01/21 14:33 Order name: Comprehensive Metabolic Panel [facility] 01/21 14:33 Order name: Comprehensive Metabolic Panel [facility] 01/21 14:33 Order name: Comprehensive Metabolic Panel [facility] 01/21 14:33 Order name: Comprehensive Metabolic Panel [facility] 01/21 14:33 Order name: Comprehensive Metabolic Panel [facility] 01/21 14:33 Order name: Magnesium ED[facility] 01/21 14:33 Order name: Magnesium EDMS 01/21 14:33 Order name: Magnesium EDMS 01/21 14:33 Order name: Magnesium EDMS 01/21 14:33 Order name: Magnesium EDMS 01/21 14:33 Order name: Magnesium EDMS 01/21 14:33 Order name: Magnesium EDMS 01/21 14:33 Order name: Magnesium EDMS 01/21 14:33 Order name: Phosphorus EDMS 01/21 14:33 Order name: Phosphorus EDMS 01/21 14:33 Order name: Phosphorus EDMS 01/21 14:33 Order name: Phosphorus EDMS 01/21 14:33 Order name: Phosphorus EDMS 01/21 14:33 Order name: Phosphorus EDMS 01/21 14:33 Order name: Phosphorus EDMS 01/21 14:33 Order name: Phosphorus EDMS 01/21 14:33 Order name: Troponin High Sensitivity EDMS 01/21 14:33 Order name: Troponin High Sensitivity EDMS 01/21 14:33 Order name: Troponin High Sensitivity EDMS 01/21 14:33 Order name: Troponin High Sensitivity EDMS 01/21 14:33 Order name: CBC with Automated Diff EDMS 01/21 14:33 Order name: CBC with Automated Diff EDMS 01/21 14:33 Order name: CBC with Automated Diff EDMS 01/21 14:33 Order name: CBC with Automated Diff EDMS 01/21 14:33 Order name: CBC with Automated Diff EDMS 01/21 14:33 Order name: CBC with Automated Diff EDMS 01/21 14:33 Order name: CBC with Automated Diff EDMS 01/21 14:33 Order name: CBC with Automated Diff EDMS 01/21 08:55 Order name: IV Saline Lock; Complete Time: 09:08 vidal 01/21 08:55 Order name: Labs collected and sent; Complete Time: 09:08 vidal 01/21 08:55 Order name: EKG - Nurse/Tech; Complete Time: 09:37 vidal EC:53 Rate is 65 beats/min. Rhythm is regular. QRS [place] is Normal. UT interval is normal. QRS vidal interval is normal. QT interval is normal. No Q waves. T waves are Normal. No ST changes noted. Clinical impression: NSR w/ Non-specific ST/T Changes and No evidence of ischemia. Interpreted by me. Reviewed by me. Administered Medications: 09:14 Drug: NS 0.9% IV 1000 ml IV at 1 bolus Per protocol; to be given as a bolus over 60 ap3 minutes Route: IV; Rate: 1 bolus; Site: right antecubital; 12:09 Follow up: IV Status: Completed infusion; IV Intake: 1000ml ap3 10:25 Drug: Ativan IVP 1 mg IVP once Route: IVP; Site: right antecubital; ap3 12:09 Follow up: Response: No adverse reaction ap3 10:25 Drug: NS 0.9% IV 1000 ml IV at 1000 ml once; to be given as a bolus over 60 minutes ap3 Route: IV; Rate: 1000 ml; Site: right antecubital; 11:30 Follow up: Response: No adverse reaction; IV Status: Completed infusion; IV Intake: jl7 1000ml 10:25 Drug: Potassium Chloride IV 20 mEq IV at per protocol once; administer over 1-2 hours ap3 Route: IV; Rate: per protocol; Site: right antecubital; 12:09 Follow up: IV Status: Completed infusion; IV Intake: 100ml ap3 10:25 Drug: NS 0.9% with KCl IV 20 mEq/L 1000 ml IV at 125 ml/hr continuous Route: IV; Rate: ap3 125 ml/hr; Site: right forearm; 14:00 Follow up: IV Status: Infusion continued upon admission jl7 10:26 Drug: Famotidine IVP 20 mg IVP once; dilute with 10 mL 0.9% NaCl; give over 2 minutes ap3 Route: IVP; Site: right antecubital; 12:09 Follow up: Response: No adverse reaction ap3 10:26 Drug: Ondansetron IVP 4 mg IVP once; over 2 minutes Route: IVP; Site: right antecubital;ap3 12:09 Follow up: Response: No adverse reaction ap3 12:08 Drug: Potassium Chloride IV 20 mEq IV at per protocol once; administer over 1-2 hours ap3 Route: IV; Rate: per protocol; Site: right antecubital; 14:08 Follow up: Response: No adverse reaction; IV Status: Completed infusion jl7 Disposition Summary: 01/21/25 10:57 Hospitalization Ordered Notes: Hospitalization Status: Observation vidal Provider: Saman Gonzalez cha Location: Telemetry/MedSurg (observation) vidal Condition: Stable vidal Problem: new vidal Symptoms: have improved vidal Bed/Room Type: Standard vidal Room Assignment: 207(01/21/25 18:55) hb Diagnosis - Nausea with vomiting, unspecified vidal - Cannabis dependence with other cannabis-induced disorder vidal - Hypokalemia vidal - Dehydration vidal - Anorexia vidal Forms: - Medication Reconciliation Form vidal - SBAR form vidal - Leadership Thank You Letter vidal Signatures: Dispatcher [employer] EDMS Oneal Villalba MD MD cha Baxter, Heather RN RN Maggie Tracy RN RN ap3 Jessa Pickering RN jl7 Corrections: (The following items were deleted from the chart) 08:55 08:55 CBC+H.LAB.BRZ ordered. EDMS EDMS 08:55 08:55 COMPREHENSIVE METABOLIC PANEL+C.LAB.BRZ ordered. EDMS EDMS 08:55 08:55 LIPASE+C.LAB.BRZ ordered. EDMS EDMS 08:55 08:55 Urinalysis+U.LAB.BRZ ordered. EDMS EDMS 12:58 12:10 Abdomen Pelvis W Con+CT.RAD.BRZ ordered. EDMS EDMS 18:55 10:57 vidal hb
--- NOTE | 2025-01-21 14:03 | P.HP ---
Certification for Inpatient Patient admitted to: Inpatient With expected LOS: >2 Midnights Patient will require the following post-hospital care: None Practitioner: I am a practitioner with admitting privileges, knowledge of patient current condition, hospital course, and medical plan of care. Services: Services provided to patient in accordance with Admission requirements found in Title 42 Section 412.3 of the Code of Federal Regulations Patient History Date of Service: 01/21/25 Reason for admission: Cannabis hyperemesis syndrome History of Present Illness: Todd Cast is a 39 year old male with Pmhx marijuana use, GERD, hiatal hernia who presents to the ED d/t intractable nausea, vomiting, and 20 pounds weight loss in 5 days. He reports "heavy" marijuana use causing intense vomiting that typically dissipates in 24 hours. This episode started five days ago. He is unable to sleep and feel comfortable. He states he will quit smoking marijuana as he feels he cannot recover from this episode. Laboratory values significant for sodium 131, potassium 2.8, BUN/creatinine 14/1.47, GFR 61, total bilirubin 2.8 down from 3.2 on 01/[address] abd/pelvis (01/13) performed at [facility] reports no acute findings. Todd will be admitted to hospitalist service for further treatment of CHS. Allergies No Known Allergies Allergy (Unverified 02/13/12 21:20) - Past Medical/Surgical History -: GERD -: Hiatal hernia -: Marijuana abuse - Social History Smoking Status: Current every day smoker Alcohol use: No CD- Drugs: No Review of Systems Other: per HPI Physical Examination - Physical Exam General: Alert, Oriented x3, Other (uncomfortable, diaphoretic) HEENT: Atraumatic, Normocephalic Neck: Supple Respiratory: Clear to auscultation bilaterally Cardiovascular: No edema, Regular rate/rhythm, Normal S1 S2 Capillary refill: <2 Seconds Gastrointestinal: Normal bowel sounds, Soft and benign Musculoskeletal: No clubbing Integumentary: No rashes - Studies Laboratory Data (last 24 hrs) 01/21/25 01/21/25 01/21/25 09:05 09:05 09:05 WBC 8.40 Hgb 12.9 L Hct 35.1 L Plt Count 376 Sodium 131 L Potassium 2.8 L BUN 14 Creatinine 1.47 H Glucose 106 Phosphorus 2.7 Total Bilirubin 2.8 H AST 14 L ALT 22 Alkaline Phosphatase 62 Lipase 36 Assessment and Plan - Plan Assessment and plan Cannabis Hyperemesis Syndrome History of GERD/Hiatal hernia Elevated Bilirubin likely 2/2 tylenol use and dehydration likely Intraparenchymal Hypokalemia -reports taking alot of tylenol for discomfort and intractable nausea -IV fluids -Potassium replaced in the ED, will continue to monitor and replace as needed -Ice chips for now, will advance tomorrow -Protonix twice daily -Carafate 4 times daily -zofran PRN -Trend LFTs ASHLYN secondary to dehydration -IV fluids same as above -Repeat labs in the a.m. Marijuana abuse -Cessation education provided -Patient states he will be quitting DVT PPx heparin Full code LOS 3 days Discharge Plan: Home Plan to discharge in: 72 Hours - Advance Directives Does patient have a Living Will: No Does patient have a Durable POA for Healthcare: No
[2025-01-21] MEDS ORDERED: SODIUM CHLORIDE 0.9% 10ML INJ IV PRN (14:24)
[2025-01-21] MEDS: NS KCL 20MEQ 1,000 ML IV SCH (15:00)
[2025-01-21 15:26] VITALS: O2SAT 100; BMI 21.6
[2025-01-21] MEDS: SUCRALFATE 1GM/10ML UCUP PO SCH (16:30)
[2025-01-21] MEDS: HEPARIN 5000 UNIT/ML 1 ML VIAL SQ SCH (17:00)
[2025-01-21] MEDS ORDERED: HEPARIN 5000 UNIT/ML 1 ML VIAL ONE (17:03)
[2025-01-21] MEDS ORDERED: SUCRALFATE 1GM/10ML UCUP ONE (17:04)
[2025-01-21] MEDS: PANTOPRAZOLE 40 MG INJ IVP SCH (21:27)
[2025-01-22 06:58] LABS: Absolute Eosinophils 0.2 K/uL (0-0.5); Absolute Lymphocytes (CBC) 2.1 K/uL (0.7-4.9); Absolute Monocytes 0.7 K/uL (0.1-1.3); Absolute Neutrophil 3.6 K/uL (1.8-8.0); Basophils % 0.5 % (0-1.3); Eosinophils % 2.7 % (0-4.4); Hematocrit 28.3 % (39.6-49.0); Hemoglobin 10.3 g/dL (13.6-17.9); Lymphocytes % 31.8 % (15.3-44.8); MCH 32.3 pg (27.0-35.0); MCHC 36.4 g/dL (32.0-36.0); MCV 88.8 fL (80-100); MPV 7.5 fL (7.6-11.3); Monocytes % 10.5 % (3.3-12.3); Neutrophils % 54.5 % (41.7-73.7); Nucleated Red Blood Cells % 0.1 % (0-0); Platelets 296 thou/uL (152-406); RBC Red Blood Cell Count 3.18 M/uL (4.33-5.43); Red Cell Distribution Width 12.8 % (12.1-15.2)
[2025-01-22] MEDS: ONDANSETRON 4 MG/2 ML VIAL IV PRN (07:13)
[2025-01-22 07:20] LABS: Albumin 3.4 g/dL (3.4-5.0); Albumin/Globulin Ratio 1.5 (1.1-1.8); Anion Gap 8.5 mEq/L (5.0-15.0); Bilirubin Total 1.8 mg/dL (0.2-1.0); Globulin 2.3 g/dL (2.3-3.5); Magnesium 2.1 mg/dL (1.6-2.4); Phosphorus 2.3 mg/dL (2.5-4.9); Potassium 3.5 mEq/L (3.5-5.1); Protein, Total 5.7 g/dL (6.4-8.2)
[2025-01-22 08:00] LABS: Specific Gravity 1.026 (1.005-1.030); Sqamous Epithelial <5 /HPF (None Seen); Urine Bacteria None Seen /HPF (<20); Urine Bilirubin NEGATIVE (Negative); Urine Blood Negative (Negative); Urine Clarity Clear (Clear); Urine Color Yellow (Yellow); Urine Culture Reflex Order NOT NEEDED; Urine Glucose NEGATIVE (Negative); Urine Ketones 2+ (Negative); Urine Microscopic Reflex YN ORDER UMIC; Urine Mucus Slight /HPF (None Seen); Urine Nitrite NEGATIVE (Negative); Urine Protein TRACE (Negative); Urine RBC <5 /HPF (None Seen); Urine Urobilinogen 1+ (Normal); Urine WBC <5 /HPF (<5)
[2025-01-22] MEDS: POTASSIUM CL SA 10 MEQ TAB PO ONE (10:54)
[2025-01-22] MEDS: PROMETHAZINE INJ 25 MG/ML AMP IV ONE (10:54)
--- NOTE | 2025-01-22 11:55 | P.DS ---
Admission Date: 01/21/25 Discharge Date: 01/22/25 Disposition: ROUTINE DISCHARGE Discharge Condition: GOOD Reason for Admission: Cannabis hyperemesis syndrome Brief History of Present Illness: Diagnosis Cannabis Hyperemesis Syndrome History of GERD/Hiatal hernia Elevated Bilirubin likely 2/2 tylenol use and dehydration likely Intraparenchymal Hypokalemia ASHLYN secondary to dehydration Marijuana abuse HPI 01/21/25 Todd Cast is a 39 year old male with Pmhx marijuana use, GERD, hiatal hernia who presents to the ED d/t intractable nausea, vomiting, and 20 pounds weight loss in 5 days. He reports "heavy" marijuana use causing intense vomiting that typically dissipates in 24 hours. This episode started five days ago. He is unable to sleep and feel comfortable. He states he will quit smoking marijuana as he feels he cannot recover from this episode. Laboratory values significant for sodium 131, potassium 2.8, BUN/creatinine 14/1.47, GFR 61, total bilirubin 2.8 down from 3.2 on 01/[address] abd/pelvis (01/13) performed at [facility] reports no acute findings. Todd will be admitted to hospitalist service for further treatment of CHS. Hospital Course: Patient was admitted and treated for the following diagnosis. Cannabis Hyperemesis Syndrome History of GERD/Hiatal hernia Elevated Bilirubin likely 2/2 tylenol use and dehydration likely Intrapare nchymal Hypokalemia -reports taking alot of tylenol for discomfort and intractable nausea -IV fluids tolerated and improved -Potassium resolved -Ice chips for now, will advance tomorrow -tolerated Protonix, Carafate, zofran twice daily -Trend LFTs showing improvement ASHLYN secondary to dehydration -IV fluids Tolerated and improved Marijuana abuse -Cessation education provided -Patient states he will be quitting On 01/22/25, Todd was seen on morning rounds and deemed hemodynamically stable, electrolytes improved. Phenergan and Carafate prescribed. Educated to establish care with a PCP, provided CHN information. Physical Exam General: Alert and Oriented x3, NAD Neck: Supple Respiratory: Clear BBS, on RA Cardiovascular: RRR, Normal S1 S2 Capillary refill: <2 Seconds Gastrointestinal: Normal bowel sounds, Soft and benign on palpation Musculoskeletal: No clubbing Integumentary: No rashes Vital Signs/Physical Exam: Temp Pulse Resp BP Pulse Ox 97.6 F 66 16 158/84 H 99 03/10/25 08:00 01/22/25 08:00 01/22/25 08:00 01/22/25 08:00 01/22/25 08:00 Laboratory Data at Discharge: WBC 6.50 thou/uL (4.3-10.9) 01/22/25 06:06 Hgb 10.3 g/dL (13.6-17.9) L D 01/22/25 06:06 Hct 28.3 % (39.6-49.0) L 01/22/25 06:06 Plt Count 296 thou/uL (152-406) 01/22/25 06:06 Sodium 137 mEq/L (136-145) D 01/22/25 06:06 Potassium 3.5 mEq/L (3.5-5.1) D 01/22/25 06:06 BUN 12 mg/dL (7-18) 01/22/25 06:06 Creatinine 1.03 mg/dL (0.70-1.30) 01/22/25 06:06 Glucose 77 mg/dL (74-106) 01/22/25 06:06 Phosphorus 2.3 mg/dL (2.5-4.9) L 01/22/25 06:06 Magnesium 2.1 mg/dL (1.6-2.4) 01/22/25 06:06 Total Bilirubin 1.8 mg/dL (0.2-1.0) H 01/22/25 06:06 AST 12 U/L (15-37) L 01/22/25 06:06 ALT 17 U/L (16-61) 01/22/25 06:06 Alkaline Phosphatase 44 U/L (45-117) L D 01/22/25 06:06 Lipase 36 U/L (13-75) 01/21/25 09:05 Home Medications: Ondansetron [Zofran (Odt)*] 4 mg PO Q6H PRN 01/21/25 Pantoprazole Sodium [Protonix] 1 tab PO DAILY 01/21/25 Promethazine Tab [Phenergan*] 25 mg PO Q6HP PRN 6 Days #15 tab 01/22/25 Sucralfate [Carafate*] 10 ml PO ACHS 10 Days #1 bottle 01/22/25 New Medications: Promethazine Tab [Phenergan*] 25 mg PO Q6HP PRN 6 Days #15 tab PRN Reason: Nausea / Vomiting Sucralfate [Carafate*] 10 ml PO ACHS 10 Days #1 bottle Physician Discharge Instructions: PROBLEM: cannabis hyperemesis syndrome GOAL: Clear understanding of disease process INSTRUCTIONS: Diet: soft GI Activity: Ad abril IMMUNIZATION Influenza Vaccine Indicated: No Influenza Vaccine Given: Date Given: Pneumonia Vaccine Indicated: No Pneumonia Vaccine Given: Date Given: 1. Please call and schedule a follow-up appointment with your PCP CHN at Dr. Boles's office in 3-5 days - Please follow-up with your PCP for medication refills/adjustments -Establish care, Dr. Boles's office is now N but Dr. Boles is [facility], make an appointment with a PCP there 2. Please call and schedule a follow-up appointment with Gastroenterology in 3-5 days 3. Continue CLD diet, advance slowly 4. No activity restrictions 5. Return to the ED if symptoms worsen New medications Phenergan 25 mg every 6 hours x 5 days Carafate 10 mL with food and bedtime x 1 bottle N address [address] [place] [address] [place] [id number] Diet: soft GI Activity: Ad abril Followup: NONE,NONE [Primary Care Provider] -
[2025-01-22 12:28] VITALS: BP 136/18; TEMP 97.9
--- NOTE | 2025-01-23 11:06 | EKG ---
Test Date: 2025-01-21 Test Time: 08:34:53 Polymer Scientist: TANISHA MEASUREMENT RESULTS: Intervals: Rate: 65 NM: 118 QRSD: 98 QT: 420 QTc: 436 [place]: P: 69 NM: 118 QRS: 59 T: 43 INTERPRETIVE STATEMENTS: Normal sinus rhythm Normal ECG Compared to ECG 10/16/2023 21:07:30 No significant changes Electronically Signed On 01-23-25 10:59:46 CDT by Contreras Christine
== END 2025-01-22 13:15 | disposition home or self-care (01) | DRG 392 ==
LOC: ER 08:43 → ERHOLD 14:24 → 2ND 19:55
PROVIDERS: ADMIT Internal Medicine; ATTEND Internal Medicine
DX: R11.2 Nausea with vomiting, unspecified (principal); N17.9 Acute kidney failure, unspecified; E86.0 Dehydration; E87.6 Hypokalemia; K21.9 Gastro-esophageal reflux disease without esophagitis; K44.9 Diaphragmatic hernia without obstruction or gangrene; F12.29 Cannabis dependence with unspecified cannabis-induced disorder; F17.200 Nicotine dependence, unspecified, uncomplicated; R63.0 Anorexia; Z68.21 Body mass index [BMI] 21.0-21.9, adult
CPT/HCPCS: 36415; 80053; 81001; 83690; 83735; 84100; 85025; 93005; 96361; 96365; 96366; 96375; 99285; J1644; J2405; J2470; J2550; J3480; J7030